=== PATIENT | female | born 2000 | race Caucasian/White ===

== ENCOUNTER 2021-10-02 16:07 | Emergency (ER) | payer MEDICAID, SELFPAY ==
[2021-10-02 16:46] VITALS: BP 142/87; PULSE 87; RESP 12; TEMP 37.2; O2SAT 99; BMI 39.2
[2021-10-02 22:18] VITALS: BP 127/90; PULSE 88; RESP 16; O2SAT 97
--- NOTE | 2021-10-02 22:23 | W.ED.FEMALGU ---
HPI - Female Genitourinary General: Chief complaint: Abdominal Pain Stated complaint: pelvic pain/ IUD Time Seen by Provider: 10/02/21 21:50 Source: patient Mode of arrival: ambulatory Limitations: no limitations History of Present Illness: Patient is a nice 20-year-old female who presents to ED today with a complaint that her IUD is causing her discomfort. She states IUD was placed in January 2021 when she lived in [place]. She states that is the Mirena. She states since it was placed she has had intermittent pelvic pains and states she can feel the strings poking her . She overall is unsatisfied with that and would like it removed. She states that has helped as far as controlling vaginal bleeding and she has not had a period for several months now. In addition to intermittent pelvic pains she has had sporadic vaginal discharge that she states changes in color . She has not noticed any vaginal odor. No dyspareunia. She is monogamous with her and has no concerns for STDs. She states she was referred to the women's health clinic was told she needed to contact the financial department prior to this appointment (?). Patient is not running fevers or chills. No vomiting. She has no urinary complaints. MD elicited complaint: vaginal discharge, pelvic pain and other (IUD complaint ) Onset (ago): month(s) Consistency: intermittent Vaginal bleeding: none Exacerbating factors: none Relieving factors: none Associated symptoms: Reports abdominal pain and vaginal discharge; Deny headache(s) or nausea Treatment prior to arrival: none Sexual activity: Yes Patient : No Review of Systems Const: Denies: fever(s), chills, body aches, fatigue or malaise Card: Denies: chest pain Resp: Denies: dyspnea GI: Reports: abdominal pain; Denies: nausea, vomiting or diarrhea : Reports: vaginal discharge and pelvic pain; Denies: flank pain, difficulty voiding, dysuria, urinary frequency, urinary urgency, urinary hesitancy, hematuria or vaginal odor Musc: Denies: neck pain, back pain, extremity pain or joint pain Skin/Breast: Denies: rash Neuro: Denies: headache(s) Physical Exam Const: COMMON NORMALS: no acute distress, patient oriented x3, no limitations and alert GENERAL APPEARANCE: cooperative NUTRITIONAL APPEARANCE: obese ORIENTATION/CONSCIOUSNESS: Yes awake, Yes oriented to person, Yes oriented to place and Yes oriented to time HENMT: COMMON NORMALS: normocephalic and atraumatic HEAD & SCALP: normal to inspection, normocephalic and atraumatic Resp: COMMON NORMALS: normal respiratory effort and clear to auscultation bilaterally AUSCULTATION: clear to auscultation bilaterally Cardio: COMMON NORMALS: regular rate and regular rhythm RATE: regular rate RHYTHM: regular rhythm GI: COMMON NORMALS: Normal to inspection, nondistended, normoactive bowel sounds present, Soft to palpation, No hepatosplenomegaly present and no masses INSPECTION: Yes normal to inspection AUSCULTATION: Yes normoactive bowel sounds PALPATION: Yes Soft to palpation, Yes Tenderness to palpation present (GI) (lower abdomen/pelvis), No Guarding due to palpation present (GI), No Rigid due to palpation and Yes No hepatosplenomegaly present : COMMON NORMALS: Yes no CVA tenderness, Yes normal external appearance and Yes No adnexal tenderness BLADDER/KIDNEY EXAM: Yes no CVA tenderness EXTERNAL FEMALE EXAM: Yes normal appearance of the urethra SPECULUM EXAM - VAGINA: Yes Vaginal discharge present Vaginal discharge present: normal and white SPECULUM EXAM - CERVIX: Yes IUD string present (IUD removed w/o difficulty), No Cervical tenderness present and Yes Other cervical findings present (very scant irritation surrounding cervical os) BIMANUAL EXAM - VAGINA & UTERUS: No Cervical tenderness present and Yes Uterine tenderness (mild ) Back/Pelvis: COMMON NORMALS: no CVA tenderness Extremity: COMMON NORMALS: normal to inspection GENERAL: Yes normal exam except as noted Neuro: COMMON NORMALS: patient oriented x3 SENSORIUM/ORIENTATION: Yes alert, Yes oriented to person, Yes oriented to place and Yes oriented to time Skin: COMMON NORMALS: no rashes or lesions noted GENERAL SKIN EXAM: no rashes or lesions noted Course Vital Signs: Vital signs: Vital Signs Temperature 98.9 F 10/02/21 16:46 Pulse Rate 92 10/03/21 00:02 Respiratory Rate 16 10/03/21 00:02 Blood Pressure 139/90 10/03/21 00:02 Pulse Oximetry 100 10/03/21 00:02 [facility] - Female Medical Decision Making Patient here with intermittent pelvic pain and vaginal discharge over the past 6 months. She is sexually active and monogamous with her . On physical exam her IUD strings were visualized and IUD was easily removed at patient request. Her pelvic exam was not overly suspicious for a PID. History is not overly suspicious for this but given the presence of an IUD I would rather err on the side of caution so she was given IM Rocephin and will be placed on doxycycline. I will go ahead and place another referral for women's health for further evaluation of her intermittent chronic pelvic pains. Return to ED precautions given. Her UA does not look suspicious for UTI. was negative. We did discuss alternative forms of control now that IUD has been removed. Lab Data Laboratory Results Urine Color Yellow (Yellow) 10/02/21 22:07 Urine Appearance Clear (CLEAR) 10/02/21 22:07 Urine pH 5 (5-7) 10/02/21 22:07 Ur Specific [place] 1.030 (1.005-1.030) 10/02/21 22:07 Urine Protein Neg (Negative) 10/02/21 22:07 Urine Glucose (UA) Norm (Normal) 10/02/21 22:07 Urine Ketones 2+ (Negative) H 10/02/21 22:07 Urine Blood 3+ (Negative) H 10/02/21 22:07 Urine Nitrate Negative (Negative) 10/02/21 22:07 Urine Bilirubin Neg (Negative) 10/02/21 22:07 Urine Urobilinogen Norm mg/dL (Negative) 10/02/21 22:07 Ur Leukocyte Esterase Negative (Negative) 10/02/21 22:07 Urine RBC 5-10 /hpf (0-2) H 10/02/21 22:07 Urine WBC 0-4 /hpf (0-5) H 10/02/21 22:07 Ur Squamous Epith Cells 0-4 /hpf (0-5) H 10/02/21 22:07 Amorphous Sediment Trace /hpf 10/02/21 22:07 Urine Bacteria Trace /hpf (NONE) 10/02/21 22:07 Urine Mucus 1+ /hpf 10/02/21 22:07 Urine HCG, Qual Negative (Negative) 10/02/21 22:07 Discharge Plan Discharge Patient Disposition: Home Clinical Impression: Pelvic pain Condition: Stable Prescriptions: New doxycycline monohydrate 100 mg capsule 100 mg PO Q12H 14 Days Qty: 28 0RF Discharge Orders: Discharge ED (Routine); Ordered 10/02/21 Ordered By: Maribel Estrada Coding Level of Care Code ED Life Enrichment Specialist for Yair Altamirano
[2021-10-02 23:15] LABS: Add Urine Microscopic? YES; Bilirubin Urine Neg (Negative); Blood Urine 3+ (Negative); Glucose Urine UA Norm (Normal); Ketones Urine 2+ (Negative); Leukocyte Esterase Urine Negative (Negative); Nitrate Urine Negative (Negative); Protein Urine Neg (Negative); Urine Appearance Clear (CLEAR); Urine Color Yellow (Yellow); Urobilinogen Urine Norm (Negative); pH Urine 5 (5-7)
[2021-10-02 23:16] LABS: Add Urine Culture? No; Amorphous Sediment Urine TRACE /hpf; Bacteria Urine TRACE /hpf; Mucus Urine 1+ /hpf; Squamous Epithelial Cell Urine 0-4 /hpf (0-5); WBC Urine 0-4 /hpf (0-5)
[2021-10-03 00:02] VITALS: BP 139/90; PULSE 92; RESP 16; O2SAT 100
--- NOTE | 2021-10-06 09:57 | DCPLANNER ---
Addendum entered by Puja Chamberlain 12/03/21 09:17: Patients appointment was rescheduled to a later date. Addendum entered by Puja Chamberlain 10/19/21 16:10: Patient has a follow up appointment scheduled for Saturday November 20, 2021 at 8:[address] Aparicio at [facility]. Clinic will notify patient with appointment information. Original Note: client development manager had message to schedule a follow up appointment for patient with [facility]. client development manager sent patients information to the front office staff at [facility]. Patients information will be printed and reviewed. Clinic will call patient with appointment information.
== END 2021-10-03 00:09 | disposition home or self-care (01) ==
PROVIDERS: Emergency Provider Physician Assistant
DX: R10.2 Pelvic and perineal pain (principal)
CPT/HCPCS: 81001; 81025; 87210; 87491; 87591; 96372; 99284; E0352; J0696

== ENCOUNTER 2021-10-20 07:01 | Outpatient (CLI) | payer MEDICAID, SELFPAY ==
--- NOTE | 2021-10-20 07:23 | US_ITS ---
WS: [id number] TRANSABDOMINAL PELVIC AND TRANSVAGINAL PELVIC ULTRASOUND HISTORY: R10.2 - Pelvic and perineal pain COMPARISON: None available. Uterus: 8.5 cm x 5.3 cm x 3.8 cm. Normal size anteverted uterus. No mass or fibroid. Endometrium: 0.7 cm. Normal homogeneity. No increased vascularity. Right ovary: 3.0 cm x 1.6 cm x 1.4 cm. Seen only on transabdominal imaging. Normal size and echogenic ity. Left ovary: 2.5 cm x 1.9 cm x 1.5 cm. Seen only on transabdominal imaging. Normal size and echogenici ty. No free fluid. US/US pelvic with transvaginal IMPRESSION: 1. No adnexal masses or free fluid. 2. Normal uterus.
== END 2021-10-20 07:02 | disposition home or self-care (01) ==
LOC: RAD 07:01
PROVIDERS: Visit Provider Obstetrics & Gynecology
DX: Z30.431 Encounter for routine checking of intrauterine contraceptive device (principal); N93.9 Abnormal uterine and vaginal bleeding, unspecified; R10.2 Pelvic and perineal pain
CPT/HCPCS: 76830; 76856

== ENCOUNTER 2022-03-04 11:00 | Outpatient (CLI) | payer BC, MEDICAID, SELFPAY ==
[2022-03-04 12:10] LABS: Thyroid Stimulating Hormone 3.39 uIU/mL (0.27-4.20)
[2022-03-04 12:26] LABS: Estmated Average Glucose 85; Hemoglobin A1C 4.6 % (4.0-6.0)
[2022-03-05 16:54] LABS: Insulin ( Reference Lab Test) 79.7 uIU/mL
== END 2022-03-04 11:01 | disposition home or self-care (01) ==
LOC: LAB 11:03
PROVIDERS: PCP Obstetrics & Gynecology; Visit Provider Obstetrics & Gynecology
DX: N92.6 Irregular menstruation, unspecified (principal)
CPT/HCPCS: 36415; 83036; 83525; 84439; 84443; 84481

== ENCOUNTER → 2022-05-05 10:28 | Outpatient (BNVA) | payer BC, MEDICAID, SELFPAY | PROVIDERS: PCP Obstetrics & Gynecology; Visit Provider Nurse Practitioner Family | DX: N30.01 Acute cystitis with hematuria (principal) | CPT/HCPCS: 81000 ==

== ENCOUNTER → 2022-07-14 09:17 | Outpatient (BNVA) | payer BC, MEDICAID, SELFPAY | PROVIDERS: PCP Obstetrics & Gynecology; Visit Provider Obstetrics & Gynecology | DX: E16.1 Other hypoglycemia (principal); E16.8 Other specified disorders of pancreatic internal secretion; R63.5 Abnormal weight gain | CPT/HCPCS: 83525; 84443 ==

== ENCOUNTER → 2023-03-16 14:48 | Outpatient (BNVA) | payer OTHER, SELFPAY | PROVIDERS: PCP Family Medicine; Visit Provider Emergency Medicine | DX: S92.531A Displaced fracture of distal phalanx of right lesser toe(s), initial encounter for closed fracture (principal); S92.521A Displaced fracture of middle phalanx of right lesser toe(s), initial encounter for closed fracture; W18.40XA Slipping, tripping and stumbling without falling, unspecified, initial encounter | CPT/HCPCS: 73630 ==

== ENCOUNTER 2023-04-06 11:22 | Outpatient (CLI) | payer OTHER, SELFPAY ==
--- NOTE | 2023-04-06 11:32 | XR_ITS ---
WS: [id number] XR foot RT min 3V* [id number] REASON FOR EXAM: PAIN IN R TOE FINDINGS: Minimally comminuted fracture of the fused phalanges of the distal fifth toe. Compared to the previous examination of 03/16/2023 there is increased separation of the major fractur e fragments. No other interval change or new finding. IMPRESSION: Fracture of the right fifth toe with interval change as above.
== END 2023-04-06 11:23 | disposition home or self-care (01) ==
PROVIDERS: PCP Family Medicine; Visit Provider Family Medicine
DX: S92.531A Displaced fracture of distal phalanx of right lesser toe(s), initial encounter for closed fracture (principal); X58.XXXA Exposure to other specified factors, initial encounter
CPT/HCPCS: 73630

== ENCOUNTER → 2023-05-04 19:04 | Outpatient (BNVA) | payer MEDICAID, SELFPAY | PROVIDERS: PCP Family Medicine; Visit Provider Nurse Practitioner | DX: N93.9 Abnormal uterine and vaginal bleeding, unspecified (principal); N92.6 Irregular menstruation, unspecified | CPT/HCPCS: 81000; 85018 ==

== ENCOUNTER → 2023-05-18 14:30 | Outpatient (BNVA) | payer MEDICAID, SELFPAY | PROVIDERS: PCP Family Medicine; Visit Provider Nurse Practitioner Women's Health | DX: E03.8 Other specified hypothyroidism (principal); E66.01 Morbid (severe) obesity due to excess calories; N92.6 Irregular menstruation, unspecified; Z12.4 Encounter for screening for malignant neoplasm of cervix | CPT/HCPCS: 82306; 83036; 84402; 84439; 84443; 84481; 84702; 88175 ==

== ENCOUNTER → 2023-05-25 08:19 | Outpatient (BNVA) | payer MEDICAID, SELFPAY | PROVIDERS: PCP Family Medicine; Visit Provider Nurse Practitioner Women's Health | DX: E66.01 Morbid (severe) obesity due to excess calories (principal); N92.6 Irregular menstruation, unspecified | CPT/HCPCS: 84403 ==

== ENCOUNTER → 2023-07-12 17:49 | Outpatient (BNVA) | payer SELFPAY | PROVIDERS: PCP Family Medicine; Visit Provider Registered Nurse Neonatal Intensive Care | DX: J02.9 Acute pharyngitis, unspecified (principal) | CPT/HCPCS: 87071; 87880 ==

== ENCOUNTER → 2023-07-20 08:24 | Outpatient (BNVA) | payer SELFPAY | PROVIDERS: PCP Family Medicine; Visit Provider Nurse Practitioner Women's Health | DX: E55.9 Vitamin D deficiency, unspecified (principal) | CPT/HCPCS: 82306 ==

== ENCOUNTER → 2023-08-03 07:51 | Outpatient (BNVA) | payer BC, MEDICAID, SELFPAY | PROVIDERS: PCP Family Medicine; Visit Provider Nurse Practitioner Women's Health | DX: N92.6 Irregular menstruation, unspecified (principal); Z34.90 Encounter for supervision of normal pregnancy, unspecified, unspecified trimester; E03.8 Other specified hypothyroidism | CPT/HCPCS: 81025; 84443; 84702; 86850; 86900 ==

== ENCOUNTER → 2023-08-18 15:26 | Outpatient (BNVA) | payer BC, MEDICAID, SELFPAY | PROVIDERS: PCP Family Medicine; Visit Provider Nurse Practitioner Women's Health | DX: Z36.87 Encounter for antenatal screening for uncertain dates (principal) | CPT/HCPCS: 76801 ==

== ENCOUNTER 2023-08-20 02:27 | Emergency (ER) | payer BC, MEDICAID, SELFPAY ==
[2023-08-20 02:36] VITALS: BP 118/76; PULSE 80; RESP 18; TEMP 36.6; O2SAT 98; BMI 44.1
[2023-08-20 03:05] VITALS: BP 114/77; PULSE 86; RESP 18; O2SAT 100
[2023-08-20 03:08] LABS: Basophils % 0.4 %; Eosinophils # 0.2 10^3/uL (0.0-0.8); Hematocrit 38.5 % (36-47); Lymphocytes # 2.8 10^3/uL (0.8-4.8); Lymphocytes % 34.1 %; Mean Corpuscular HGB Conc 34.8 g/dL (30-55); Mean Corpuscular Hemoglobin 30.6 pg (27-33); Mean Corpuscular Volume 87.9 fl (85-98); Mean Platelet Volume 12.9 fL (7.4-10.4); Monocytes # 0.6 10^3/uL (0.2-0.9); Monocytes % 7.8 %; Neutrophils # 4.43 10^3/uL (1.8-7.7); Neutrophils % 54.5 %; Nucleated Red Blood Cells % 0 %; Platelet Count 171 10^3/cmm (157-399); Red Blood Count 4.38 10^6/uL (3.85-5.65); Red Cell Distribution Width 11.9 % (12.1-15.1); White Blood Count 8.12 10^3/uL (3.29-11.43)
[2023-08-20] MEDS: sodium chloride 0.9% 1,000 ML 999 ML IV (03:08)
--- NOTE | 2023-08-20 03:13 | ED_ITS ---
HPI - Abdominal Pain 2 General: Chief Complaint: Abdominal Pain Stated Complaint: Lower abd pain, Cramping Time Seen by Provider: 08/20/23 02:40 History of Present Illness: Patient presents to the ER with complaints of suprapubic cramping. Patient is approximately 9 weeks . Patient has had an ultrasound about 2 days ago. Patient said this is the worst pain since she had her periods. Patient is not bleeding or have any discharge. Patient has not had any fever or chills. This is patient's first . PFSH ED 2 PFSH: Medical History No pertinent past medical history Neg hx: HTN, DM, Thyroid, DVT/PE PCP: Dysmenorrhea Asthma Surgical History History of removal of cyst Pilonidal Family History Grandmother Breast cancer father Diabetes maternal Grandfather Diabetes maternal Hypertension maternal Denies family history of Colon cancer Ovarian cancer Heart disease Uterine cancer Thyroid disease Stroke Physical Exam 2 Const: COMMON NORMALS: no acute distress, average body habitus, patient oriented x3, no limitations, healthy appearing, alert and well nourished HENMT: COMMON NORMALS: normocephalic, atraumatic, hearing grossly normal bilaterally, external ears normal, Normal external nose present, moist oral mucous membranes and oropharynx normal HEAD & SCALP: normocephalic and atraumatic NOSE: Normal external nose present EXTERNAL EAR: Yes external ears normal Neck/C-Spine: COMMON NORMALS: no JVD Chest: COMMONS NORMALS: normal inspection of the chest and normal palpation of entire chest wall Resp: COMMON NORMALS: normal respiratory effort, No retractions, No use of accessory muscles and clear to auscultation bilaterally AUSCULTATION: clear to auscultation bilaterally Cardio: COMMON NORMALS: no JVD, regular rate, regular rhythm, S1 normal heart sound present, S2 normal heart sound present, No gallops present (Cardio), No clicks present (Cardio), No murmurs present (Cardio) and No rub (Cardio) R ATE: regular rate RHYTHM: regular rhythm HEART SOUNDS: S1 normal heart sound present and S2 normal heart sound present GI: COMMON NORMALS: Normal to inspection, nondistended, normoactive bowel sounds present, Soft to palpation, No hepatosplenomegaly present and no masses; negative for non-tender (Tender to palpation over suprapubic area) PALPATION: Yes Soft to palpation and Yes No hepatosplenomegaly present Neuro: COMMON NORMALS: patient oriented x3 SENSORIUM/ORIENTATION: Yes alert Course 2 Vital Signs: Vital signs: Vital Signs Temperature 97.8 F 08/20/23 02:36 Pulse Rate 82 08/20/23 04:00 Respiratory Rate 16 08/20/23 04:00 Blood Pressure 101/75 08/20/23 04:00 Pulse Oximetry 99 08/20/23 04:00 Oxygen Delivery Me thod Room Air 08/20/23 04:00 MDM - Abdominal Pain Medical Decision Making Patient 1 L of normal saline infused, CBC CMP UA were obtained as well as hCG quant, UA showed 1+ leukocyte Estrace, 3+ bacteria, but also showed 15-25 epithelial cells. Is unknown if this is contaminated or true UTI however since she is we will go ahead and treat it as a UTI. Ultrasound was obtained which the tech said cervix was closed and had good heart rate. Patient was given Macrobid here in ER and will be discharged home with prescription for Macrobid. Lab Data 08/20/23 02:58 08/20/23 02:58 Labs/Radiology: Laboratory Results WBC 8.12 10^3/uL (3.29-11.43) 08/20/23 02:58 RBC 4.38 10^6/uL (3.85-5.65) 08/20/23 02:58 Hgb 13.40 g/dL (11.27-16.99) 08/20/23 02:58 Hct 38.5 % (36-47) 08/20/23 02:58 MCV 87.9 fl (85-98) 08/20/23 02:58 MCH 30.6 pg (27-33) 08/20/23 02:58 MCHC 34.8 g/dL (30-55) 08/20/23 02:58 RDW 11.9 % (12.1-15.1) L 08/20/23 02:58 Plt Count 171 10^3/cmm (157-399) 08/20/23 02:58 MPV 12.9 fL (7.4-10.4) H 08/20/23 02:58 Neut % (Auto) 54.5 % 08/20/23 02:58 Lymph % (Auto) 34.1 % 08/20/23 02:58 [place] % (Auto) 7.8 % 08/20/23 02:58 Eos % (Auto) 3.0 % 08/20/23 02:58 Baso % (Auto) 0.4 % 08/20/23 02:58 Neut # (Auto) 4.43 10^3/uL (1.8-7.7) 08/20/23 02:58 Lymph # (Auto) 2.8 10^3/uL (0.8-4.8) 08/20/23 02:58 [place] # (Auto) 0.6 10^3/uL (0.2-0.9) 08/20/23 02:58 Eos # (Auto) 0.2 10^3/uL (0.0-0.8) 08/20/23 02:58 Baso # (Auto) 0.0 10^3/uL (0.0-0.1) 08/20/23 02:58 Nucleated RBC % (auto) 0 % 08/20/23 02:58 Nucleated RBCs # 0.0 /100WBC 08/20/23 02:58 Sodium 137 mmol/L (136-145) 08/20/23 02:58 Potassium 3.8 mmol/L (3.5-5.1) 08/20/23 02:58 Chloride 104 mmol/L (98-107) 08/20/23 02:58 Carbon Dioxide 22 mmol/L (22-29) 08/20/23 02:58 Anion Gap 14.8 (5-19) 08/20/23 02:58 BUN 7 mg/dL (6-20) 08/20/23 02:58 Creatinine 0.4 mg/dL (0.5-0.9) L 08/20/23 02:58 GFR Calculation 196.1 mL/min (90-130) H 08/20/23 02:58 Glucose 100 mg/dL (65-115) 08/20/23 02:58 Calculated Osmolality 282 mOsm/kg (285-295) L 08/20/23 02:58 Calcium 9.1 mg/dL (8.5-10.5) 08/20/23 02:58 Total Bilirubin 1.3 mg/dL (0.15-1.2) H 08/20/23 02:58 AST 13 U/L (0-32) 08/20/23 02:58 ALT 15 U/L (0-33) 08/20/23 02:58 Alkaline Phosphatase 51 U/L (35-105) 08/20/23 02:58 Total Protein 6.9 g/dL (6.6-8.7) 08/20/23 02:58 Albumin 3.9 g/dL (3.5-5.2) 08/20/23 02:58 Globulin 3.0 g/dL (1.3-4.6) 08/20/23 02:58 Ser , Semi-Qnt 799387.00 mIU/mL 08/20/23 02:58 Urine Color Yellow (Yellow) 08/20/23 03:41 Urine Appearance Clear (CLEAR) 08/20/23 03:41 Urine pH 5 (5-7) 08/20/23 03:41 Ur Specific [place] 1.030 (1.005-1.030) 08/20/23 03:41 Urine Protein Neg (Negative) 08/20/23 03:41 Urine Glucose (UA) Norm (Normal) 08/20/23 03:41 Urine Ketones 1+ (Negative) H 08/20/23 03:41 Urine Blood Neg (Negative) 08/20/23 03:41 Urine Nitrate Negative (Negative) 08/20/23 03:41 Urine Bilirubin Neg (Negative) 08/20/23 03:41 Urine Urobilinogen Neg mg/dL (Negative) 08/20/23 03:41 Ur Leukocyte Esterase 1+ (Negative) H 08/20/23 03:41 Urine RBC 5-10 /hpf (0-2) H 08/20/23 03:41 Urine WBC 5-10 /hpf (0-5) H 08/20/23 03:41 Ur Squamous Epith Cells 15-25 /hpf (0-5) H 08/20/23 03:41 Calcium Oxalate Crystal 5-10 /hpf H 08/20/23 03:41 Amorphous Sediment Trace /hpf 08/20/23 03:41 Urine Bacteria 3+ /hpf (NONE) H 08/20/23 03:41 Urine Mucus 1+ /hpf 08/20/23 03:41 All radiology interpretation(s) finalized by discharge Discharge Plan Discharge Patient Disposition: Home Clinical Impression: UTI (urinary tract infection) during Qualifiers: Trimester: first trimester Qualified Code(s): O23.41 - Unspecified infection of urinary tract in , first trimester Condition: Stable Prescriptions: New Macrobid 100 mg capsule 100 mg PO BID 7 Days Qty: 14 0RF Rx Instructions: must administer with a meal/food No Action Gummies 400 mcg-35 mg- 25 mg-5 mg tablet,chewable 2 tab PO DAILY levothyroxine 25 mcg tablet 25 mcg PO DAILY Qty: 30 1RF Discharge Orders: Discharge ED (Routine); Ordered 08/20/23 Ordered By: Tao Fonseca Referrals: Trupti Velez DO [Primary Care Provider] - 1 week Patient Instructions: Urinary Tract Infection in (ED) Activity Restrictions/Additional Instructions: Your lab work was unremarkable other than your urinalysis showed you may have a slight urinary tract infection. You will be treated for this with an antibiotic called Macrobid. Urinary tract infections and dehydration can cause spasm and cramps in . Please drink plenty of fluids. Please follow-up with your MODELING AGENT and/or family practice doctor the next 7 days for further evaluation and treatment as needed. If your symptoms worsen return or you notice any discharge or bleeding please feel free to return to the ER. Coding Level of Care Code ED Admitting Supervisor for Yair Altamirano
[2023-08-20 03:38] LABS: Alanine Aminotransferase 15 U/L (0-33); Albumin Level 3.9 g/dL (3.5-5.2); Alkaline Phosphatase 51 U/L (35-105); Blood Urea Nitrogen 7 mg/dL (6-20); Calcium 9.1 mg/dL (8.5-10.5); Carbon Dioxide 22 mmol/L (22-29); Chloride 104 mmol/L (98-107); Creatinine Clr Calc Pharmacy 281.6975; Glomerular Filtration Rate 196.1 mL/min (90-130); Glucose 100 mg/dL (65-115); Osmolality Calculated 282 mOsm/kg (285-295); Sodium 137 mmol/L (136-145); Total Bilirubin 1.3 mg/dL (0.15-1.2); Total Protein 6.9 g/dL (6.6-8.7)
[2023-08-20 03:39] LABS: Anion Gap 14.8 (5-19); Aspartate Amino Transferase 13 U/L (0-32); Potassium 3.8 mmol/L (3.5-5.1)
--- NOTE | 2023-08-20 03:40 | USR_ITS ---
PROCEDURE INFORMATION: Exam: US , Limited Exam date and time: 08/20/2023 4:24 AM Age: 22 years old Clinical indication: complicated by abdominal or pelvic pain; Lower; First trimester (<14 weeks 0 days); Gestational age or lmp: 8w5d; ; Additional info: Pelvic pain cramping, 9 weeks gestation LABS AND CLINICAL REPORTS: Gestational age (Established): 9 w 0 d Estimated due date (Established): 03/24/2024 TECHNIQUE: Imaging protocol: Real-time ultrasound of the maternal uterus with image documentation. Exam focused on the clinical indication. COMPARISON: US OB <= 14 weeks fetus [id number] 08/18/2023 3:33 PM FINDINGS: Single living intrauterine fetus. [place] rump length of 2.1 cm estimates age at 8 weeks, 5 days. heart activity documented by the technologist, 178 bpm. Amniotic fluid appears adequate for gestation. No definite/significant uterine abnormality. Cervical length was estimated with transabdominal scanning, measuring approximately 3.0 cm. No definite cervical canal dilation or fluid on the provided images. No visible/significant free pelvic fluid. Neither maternal ovary was visualized at this time. Adnexal regions otherwise appear essentially unremarkable on the provided images. The urinary bladder was not completely evaluated/imaged at this time. US/US OB limited [id number] IMPRESSION: 1. Single living intrauterine fetus, 8 weeks, 5 days estimated age. 2. Other details discussed above.
[2023-08-20 04:00] VITALS: BP 101/75; PULSE 82; RESP 16; O2SAT 99
[2023-08-20 04:15] LABS: Add Urine Microscopic? YES; Bilirubin Urine Neg (Negative); Blood Urine Neg (Negative); Glucose Urine UA Norm (Normal); Ketones Urine 1+ (Negative); Leukocyte Esterase Urine 1+ (Negative); Nitrate Urine Negative (Negative); Protein Urine Neg (Negative); Urine Appearance Clear (CLEAR); Urine Color Yellow (Yellow); Urobilinogen Urine Neg (Negative); pH Urine 5 (5-7)
[2023-08-20 04:17] LABS: Amorphous Sediment Urine TRACE /hpf; Bacteria Urine 3+ /hpf; Mucus Urine 1+ /hpf; Squamous Epithelial Cell Urine 15-25 /hpf (0-5)
[2023-08-20] MEDS: nitrofurantoin SR (BID) 100 mg Capsule PO (05:07)
[2023-08-20 05:50] VITALS: PULSE 84; RESP 16; O2SAT 99
== END 2023-08-20 05:49 | disposition home or self-care (01) ==
PROVIDERS: Emergency Provider Emergency Medicine; PCP Family Medicine
DX: O23.41 Unspecified infection of urinary tract in pregnancy, first trimester (principal); Z3A.09 9 weeks gestation of pregnancy
CPT/HCPCS: 76815; 80053; 81001; 84702; 85025; 96360; 96361; 99284; J7030

== ENCOUNTER → 2023-09-06 08:05 | Outpatient (BNVA) | payer MEDICAID, BC, SELFPAY | PROVIDERS: PCP Family Medicine; Visit Provider Nurse Practitioner Women's Health | DX: Z34.90 Encounter for supervision of normal pregnancy, unspecified, unspecified trimester (principal) | CPT/HCPCS: 80307; 82950; 84315; 85025; 86592; 86762; 86803; 87086; 87340; 87806 ==